=== PATIENT | male | born 1955 | race Caucasian/White ===

== ENCOUNTER 2017-06-11 14:10 | Inpatient (IN) | payer MEDICARE, OTHER ==
[~2017-06-11] VITALS: Ht 175.3 cm; Wt 70.9 kg
[2017-06-11 15:40] VITALS: BP 152/86
[2017-06-11] MEDS ORDERED: hydrALAzine 20 MG/ML, 1ML IVPush PRN (18:30)
[2017-06-11] MEDS ORDERED: LORazepam 1MG TABLET PO PRN (18:30)
[2017-06-11] MEDS ORDERED: ONDANSETRON 2MG/ML, 2ML IVPush PRN (18:30)
[2017-06-11] MEDS ORDERED: OXYcodone/APAP 5/325MG TABLET PO PRN (18:30)
[2017-06-11] MEDS ORDERED: ACETAMINOPHEN 325 MG TABLET PO PRN (18:30)
[2017-06-11] MEDS ORDERED: ENOXAPARIN 80 MG/0.8 ML SQ SCH (19:00)
[2017-06-11 19:11] VITALS: BP 126/94
[2017-06-11] MEDS ORDERED: HEPARIN 5,000 UNITS/ML, 1ML IV PRN (20:00)
[2017-06-11] MEDS ORDERED: HEPARIN 5,000 UNITS/ML, 1ML IV ONE (20:00)
[2017-06-11] MEDS ORDERED: HEPARIN 25,000 UNITS/500ML PMX 500 ML IV PRN (20:00)
[2017-06-12 01:10] VITALS: BP 111/79
[2017-06-12 03:39] LABS: ASPARTATE AMINO TRANSFERASE 9 U/L (15-37); BLOOD UREA NITROGEN 13 mg/dL (7-18)
[2017-06-12 06:58] VITALS: BP 124/77
[2017-06-12] MEDS: PANTOPRAZOLE 40 MG IV IVPush SCH (08:58)
[2017-06-12] MEDS: APIXABAN 5 MG TABLET PO SCH ×3 (08:59→21:20)
[2017-06-12 13:04] VITALS: BP 126/82
[2017-06-12 14:30] LABS: HEMATOCRIT 44.5 % (39.2-51.8); HEMOGLOBIN 15.1 g/dL (13.7-18.0); WHITE BLOOD COUNT 8.4 x10^3/uL (3.4-10)
[2017-06-12 20:52] VITALS: BP 117/76
[2017-06-13 03:05] VITALS: BP 121/86
[2017-06-13] MEDS: APIXABAN 5 MG TABLET PO SCH (08:28)
[2017-06-13] MEDS: PANTOPRAZOLE 40 MG IV IVPush SCH (08:28)
[2017-06-13 08:30] VITALS: BP 129/80
[2017-06-13] MEDS ORDERED: APIX5TAB PO (10:23)
[2017-06-13] MEDS ORDERED: ACET325T14 PO (10:23)
[2017-06-13] MEDS ORDERED: FLU VACC QS2017-18 (36MOS+) UP/PF 0.5 ML IM-VACC ONE (12:00)
[2017-06-18] MEDS ORDERED: APIXABAN 5 MG TABLET PO SCH (21:00)
== END 2017-06-13 12:30 | disposition home or self-care (01) | DRG 176 ==
LOC: 4WST 14:10 → DCLOUNGE 06-13 12:15
PROVIDERS: ADMIT Internal Medicine; ATTEND Internal Medicine
DX: I26.99 Other pulmonary embolism without acute cor pulmonale (principal); E44.1 Mild protein-calorie malnutrition; J44.9 Chronic obstructive pulmonary disease, unspecified; Z87.891 Personal history of nicotine dependence; D75.89 Other specified diseases of blood and blood-forming organs; Z91.030 Bee allergy status; Z68.23 Body mass index [BMI] 23.0-23.9, adult
CPT/HCPCS: 36415; 80053; 85025; 85520; 90686; 93970; J1644; C9113